=== PATIENT | male | born 1985 | race Caucasian/White ===

== ENCOUNTER → 2024-07-01 11:14 | Outpatient (BNVA) | payer OTHER, SELFPAY | DX: Z76.89 Persons encountering health services in other specified circumstances (principal); E03.9 Hypothyroidism, unspecified; Z13.220 Encounter for screening for lipoid disorders; Z13.6 Encounter for screening for cardiovascular disorders | CPT/HCPCS: 80053; 80061; 84439; 84443; 84481; 85025 ==

== ENCOUNTER → 2024-12-30 15:18 | Outpatient (BNVA) | payer OTHER, SELFPAY | DX: E03.9 Hypothyroidism, unspecified (principal) | CPT/HCPCS: 80053; 84439; 84443 ==

== ENCOUNTER → 2025-06-26 11:09 | Outpatient (BNVA) | payer OTHER, SELFPAY | DX: Z13.220 Encounter for screening for lipoid disorders (principal); Z13.6 Encounter for screening for cardiovascular disorders; E03.9 Hypothyroidism, unspecified | CPT/HCPCS: 80061; 84443 ==